=== PATIENT | male | born 2000 | race African-American/Black ===

== ENCOUNTER 2022-01-14 12:50 | Emergency (ER) | payer MEDICAID, OTHER ==
[~2022-01-14] VITALS: Ht 182.9 cm; Wt 90.7 kg
[2022-01-14] MEDS ORDERED: cefTRIAXone SOD 1,000 MG VL IM ONE (14:15)
[2022-01-14] MEDS ORDERED: methylPREDNISolone SOD SUCC 125 MG/2 ML VL IM ONE (14:15)
[2022-01-14 17:31] VITALS: BP 122/74
[2022-01-14] MEDS ORDERED: PRED20TA2 PO (18:09)
[2022-01-14] MEDS ORDERED: ACET-1158 PO (18:09)
[2022-01-14] MEDS ORDERED: AMOX-277 PO (18:09)
== END 2022-01-14 18:44 | disposition home or self-care (01) ==
LOC: ER 12:50 → EDBD 12:50 → ER 18:38
DX: K12.2 Cellulitis and abscess of mouth (principal); Z79.2 Long term (current) use of antibiotics; Z79.899 Other long term (current) drug therapy
CPT/HCPCS: 96372; 99284; J0696; J2930